=== PATIENT | female | born 1970 | race Two or more races ===

== ENCOUNTER 2023-10-26 13:42 | Emergency (ER) | payer MEDICAID, OTHER ==
[~2023-10-26] VITALS: Ht 149.9 cm; Wt 59.0 kg
[2023-10-26 14:29] VITALS: BP 106/59; PULSE 88; RESP 18; TEMP 98.8; O2SAT 97
[2023-10-26] MEDS: HYDROcodone-ACET 5/325MG TAB PO ONE (14:43)
[2023-10-26] MEDS ORDERED: IBUP-1456 PO (15:32)
== END 2023-10-26 15:48 | disposition home or self-care (01) ==
LOC: ER 13:46
DX: S82.045A Nondisplaced comminuted fracture of left patella, initial encounter for closed fracture (principal); Z79.899 Other long term (current) drug therapy; V49.88XA Car occupant (driver) (passenger) injured in other specified transport accidents, initial encounter; Y93.I9 Activity, other involving external motion; Y92.89 Other specified places as the place of occurrence of the external cause; Y99.8 Other external cause status
CPT/HCPCS: 73562